=== PATIENT | male | born 1945 ===

== ENCOUNTER 2016-09-28 22:37 | Emergency (ER) | payer OTHER ==
[2016-09-28 22:42] VITALS: BP 107/75; PULSE 85; TEMP 97.6
[2016-09-28] MEDS ORDERED: Sodium Chloride 0.9% 500 ML IV STA (23:07)
[2016-09-28 23:14] VITALS: RESP 18; O2SAT 97
--- NOTE | 2016-09-28 23:22 | ED PDOC ---
HPI: SOB/CHF/COPD Time Seen by Provider: 09/28/16 22:51 Chief Complaint (Nursing): Shortness Of Breath Chief Complaint (Provider): SOB History Per: Patient History/Exam Limitations: no limitations Onset/Duration Of Symptoms: Hrs Current Symptoms Are (Timing): Still Present Additional Complaint(s): 71yo male with PMHx including HTN, COPD, diabetes presents to the ED with c/o SOB and diffuse weakness. Patient states he has been in house all day with heater on very high. Reports progressive SOB, generalized weakness, fatigue, body aches, dizziness. Denies cough, fever, headache, chest pain, leg swelling, v/d. Patient states he feels the heat is triggering the symptoms. Past Medical History Reviewed: Historical Data, Nursing Documentation, Vital Signs Vital Signs: Last Vital Signs Temp 97.6 F 09/28/16 22:38 Pulse 85 09/28/16 22:38 Resp 18 09/28/16 23:00 BP 107/75 09/28/16 22:38 Pulse Ox 97 09/28/16 23:00 - Medical History PMH: Arthritis, COPD, Diabetes, HTN, Hypercholesterolemia, Seizures Denies: CHF, HIV, Hypothyroidism, Chronic Kidney Disease, Rheumatoid Arthritis - Surgical History Surgical History: Appendectomy - Family History Family History: States: No Known Family Hx - Social History Current smoker - smoking cessation education provided: No - Home Medications Home Medications: Ambulatory Orders Medication Instructions Recorded Tiotropium [Spiriva] 18 mcg IH DAILY 11/06/14 Vitamin B Complex [Super B100] 1 cap PO DAILY 11/06/14 Albuterol HFA [Ventolin HFA 90 2 puff INH Q4 PRN #0 inhaler 05/07/15 mcg/actuation (8 g)] Aspirin [Ecotrin] 81 mg PO DAILY #0 tabec 05/07/15 Atorvastatin [Lipitor] 20 mg PO DAILY@2100 #0 tab 05/07/15 Gabapentin [Neurontin] 300 mg PO TID #0 cap 05/07/15 Naproxen 500 mg PO BID PRN #0 tab 05/07/15 Pantoprazole [Protonix EC Tab] 40 mg PO DAILY #0 ect 05/07/15 Phenytoin, Extended [Dilantin] 100 mg PO TID #0 cer 05/07/15 - Allergies Allergies/Adverse Reactions: Allergies Allergy/AdvReac Type Severity Reaction Status Date / Time No Known Allergies Allergy Verified 03/04/16 12:25 Review of Systems ROS Statement: Except As Marked, All Systems Reviewed And Found Negative Constitutional: Positive for: Weakness, Other (fatigue, body aches ). Negative for: Fever Cardiovascular: Negative for: Chest Pain Respiratory: Positive for: Shortness of Breath. Negative for: Cough Gastrointestinal: Negative for: Vomiting, Diarrhea Musculoskeletal: Positive for: Other (no leg swelling ) Neurological: Positive for: Dizziness. Negative for: Headache Physical Exam - Reviewed Nursing Documentation Reviewed: Yes Vital Signs Reviewed: Yes - Physical Exam Appears: Positive for: In Acute Distress (mild ). Negative for: Well (appears chronically ill, poor muscle bulk ) Head Exam: Positive for: ATRAUMATIC, NORMAL INSPECTION, NORMOCEPHALIC Skin: Positive for: Normal Color, Warm, Dry Eye Exam: Positive for: Normal appearance, EOMI, PERRL ENT: Positive for: Pharynx Is (clear ), Other (tacky mucous membranes ). Negative for: Pharyngeal Erythema, Tonsillar Exudate, Tonsillar Swelling Neck: Positive for: Normal, Painless ROM, Supple Cardiovascular/Chest: Positive for: Regular Rate, Rhythm. Negative for: Murmur , Tachycardia Respiratory: Positive for: Rhonchi (faint scattered b/l ). Negative for: Rales , Wheezing, Respiratory Distress Gastrointestinal/Abdominal: Positive for: Normal Exam, Bowel Sounds, Soft. Negative for: Tenderness Back: Positive for: Normal Inspection. Negative for: L CVA Tenderness, R CVA Tenderness Extremity: Positive for: Normal ROM. Negative for: Deformity, Swelling Neurologic/Psych: Positive for: Alert, Oriented (x3 ), Mood/Affect (very anxious ). Negative for: Motor/Sensory Deficits - ECG O2 Sat by Pulse Oximetry: 97 Pulse Ox Interpretation: Normal (RA) Medical Decision Making Medical Decision Makin: Impression: weakness and dehydration Plan: Labs EKG CXR IVF reassess Scribe Attestation: Documented by Nuris Goodwin acting as a scribe for Renae Nicholson MD. Provider Scribe Attestation: All medical record entries made by the Scribe were at my direction and personally dictated by me. I have reviewed the chart and agree that the record accurately reflects my personal performance of the history, physical exam, medical decision making, and the department course for this patient. I have also personally directed, reviewed, and agree with the discharge instructions and disposition.
[2016-09-28 23:54] LABS: BASO # 0.1 K/uL (0.0-0.2); BASO % 1.1 % (0.0-2.0); EOS # 0.2 K/uL (0.0-0.7); EOS % 2.7 % (0.0-4.0); HEMATOCRIT 43.6 % (35.0-51.0); LYMPH # 2.9 K/uL (1.0-4.3); LYMPH % 34.1 % (20.0-40.0); MEAN CELL VOLUME 93.7 fl (80.0-94.0); MEAN CORPUSCULAR HGB CONC 33.1 g/dL (33.0-37.0); MEAN PLATELET VOLUME 8.6 fl (7.2-11.7); MONO # 1.1 K/uL (0.0-0.8); MONO % 13.3 % (0.0-10.0); NEUT # 4.2 K/uL (1.8-7.0); NEUT % 48.8 % (50.0-75.0); NRBC % 0.1 % (0.0-0.0); RED CELL DISTRIBUTION WIDTH 12.7 % (11.5-14.5); WHITE BLOOD COUNT 8.6 K/uL (4.8-10.8)
[2016-09-29 00:03] LABS: ALB/GLOB RATIO 1.3 (1.0-2.1); ALKALINE PHOSPHATASE 81 U/L (38-126); ALT/SGPT 35 U/L (21-72); AST/SGOT 35 U/L (17-59); BILIRUBIN,TOTAL 0.3 mg/dl (0.2-1.3); BLOOD UREA NITROGEN 16 mg/dl (9-20); CALCIUM 10.1 mg/dL (8.4-10.2); CARBON DIOXIDE 27 mmol/L (22-30); CHLORIDE 104 mmol/L (98-107); GFR AFRICAN-AMERICAN > 60; GLUCOSE,RANDOM 108 mg/dL (75-110); MAGNESIUM 2.1 MG/DL (1.6-2.3); PHOSPHOROUS 3.8 mg/dl (2.5-4.5); POTASSIUM 4.5 MMOL/L (3.6-5.0); SODIUM 143 mmol/l (132-148); TOTAL PROTEIN 7.8 G/DL (6.3-8.2)
[2016-09-29 00:13] LABS: PARTIAL THROMBOPLASTIN TIME 24.7 SECONDS (23.3-32.5)
--- NOTE | 2016-09-29 02:46 | ED PDOC ---
- Laboratory Results Result Diagrams: 09/28/16 23:47 09/28/16 23:47 - ECG O2 Sat by Pulse Oximetry: 97 Medical Decision Making Medical Decision Making: Patient s/o from Dr. Nicholson at 0000 pending labs and re-eval. 0245: Labs reviewed, show no clinically significant abnormalities. Patient reports marked improvement and is stable for d/c. Dx: dehydration stable Scribe Attestation: Documented by Nuris Goodwin acting as a scribe for Ruel Grant MD. Provider Scribe Attestation: All medical record entries made by the Scribe were at my direction and personally dictated by me. I have reviewed the chart and agree that the record accurately reflects my personal performance of the history, physical exam, medical decision making, and the department course for this patient. I have also personally directed, reviewed, and agree with the discharge instructions and disposition. Disposition - Clinical Impression Clinical Impression: Dehydration - POA Present On Arrival: None - Disposition Referrals: [facility] [Outside] Disposition: Routine/Home Disposition Time: 02:45 Condition: STABLE Instructions: Dehydration (ED) Print Language: MOZAMBICAN
--- NOTE | 2016-09-29 07:55 | CARD ---
APPROVED REPORT EKG Measurement Heart [id number] <Conclusion> Normal sinus rhythm Normal ECG
--- NOTE | 2016-09-29 10:33 | RAD ---
HISTORY: sob COMPARISON: Chest x-ray performed 03/04/16 TECHNIQUE: Chest, one view. FINDINGS: LUNGS: Hyperinflation may be seen in the setting of COPD. Bilateral perihilar prominence. Inferior right upper lobe opacity ; recommend CT chest with IV contrast for further evaluation. Please note that chest x-ray has limited sensitivity for the detection of pulmonary masses. PLEURA: No significant pleural effusion identified. No definite pneumothorax . CARDIOVASCULAR: Heart size appears within normal limits. Atherosclerotic calcifications of the aorta. OSSEOUS STRUCTURES: Degenerative changes. VISUALIZED UPPER ABDOMEN: Unremarkable. OTHER FINDINGS: None. IMPRESSION: Hyperinflation may be seen in the setting of COPD. Bilateral perihilar prominence. Inferior right upper lobe opacity. Recommend CT chest with IV contrast for further evaluation. Study has been marked for PA review.
== END 2016-09-29 07:19 | disposition home or self-care (01) ==
LOC: H.ER 22:37
DX: J44.9 Chronic obstructive pulmonary disease, unspecified (principal); R06.02 Shortness of breath; E86.0 Dehydration; E11.9 Type 2 diabetes mellitus without complications; I10 Essential (primary) hypertension